=== PATIENT | female | born 1985 | race Caucasian/White ===

== ENCOUNTER 2018-03-24 14:28 | Emergency (ER) | payer SELFPAY ==
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
[2018-03-24 16:18] LABS: URINE APPEARANCE CLEAR; URINE BILIRUBIN NEGATIVE (NEGATIVE); URINE BLOOD NEGATIVE (NEGATIVE); URINE COLOR YELLOW; URINE GLUCOSE (UA) NEGATIVE (NEGATIVE); URINE KETONE NEGATIVE (NEGATIVE); URINE LEUKOCYTE ESTERASE NEGATIVE (NEGATIVE); URINE NITRITE NEGATIVE (NEGATIVE); URINE PROTEIN NEGATIVE (NEGATIVE); URINE UROBILINOGEN 0.2 E.U./dL (0.20 - 1.00)
--- NOTE | 2018-03-25 08:16 | RADIOLOGY REPORT ---
EXAM: CHEST AND RIGHT RIBS HISTORY: COUGH, PAIN. TECHNIQUE: A single PA view of the chest was performed. Two views of the right rib cage were performed. FINDINGS: The heart size is normal. The lung metzger are clear. No pneumothorax. No infiltrate or pleural effusion. No rib fracture deformity. IMPRESSION: NEGATIVE PA CHEST AND RIGHT RIB SERIES. JOB NUMBER: [id number] MTDD
== END 2018-03-24 16:29 | disposition home or self-care (01) ==
LOC: ER 14:28
DX: S20.211A Contusion of right front wall of thorax, initial encounter (principal); R05 Cough; W10.9XXA Fall (on) (from) unspecified stairs and steps, initial encounter; Y92.008 Other place in unspecified non-institutional (private) residence as the place of occurrence of the external cause
CPT/HCPCS: 81003; 99283